=== PATIENT | female | born 1955 | race Caucasian/White ===

== ENCOUNTER → 2024-07-17 | Outpatient (CLI) | payer MEDICARE | END | disposition home or self-care (01) | LOC: CARD 00:24 | PROVIDERS: ATTEND Nurse Practitioner | DX: I08.3 Combined rheumatic disorders of mitral, aortic and tricuspid valves (principal); R79.89 Other specified abnormal findings of blood chemistry; R60.0 Localized edema; R06.02 Shortness of breath ==